=== PATIENT | male | born 1965 | race Caucasian/White ===

== ENCOUNTER 2017-10-16 18:34 | Inpatient (IN) | payer MEDICAID ==
[~2017-10-16] VITALS: Ht 188 cm; Wt 108.2 kg
--- NOTE | ~2017-10-16 | HP ---
PATIENT: REY MONTEMAYOR MEDICAL RECORD: [id number] ACCOUNT: [id number] LOCATION:[facility] [id number] : 65 ADMISSION DATE: 10/16/17 HISTORY AND PHYSICAL EXAMINATION REASON FOR ADMISSION: Two-day history of dark bloody stool. HISTORY OF PRESENT ILLNESS: The patient is a 52-year-old male, who is incarcerated at the detention. He states he had been having some wisdom tooth pain and neck pain. He says he has been averaging 1600 mg of ibuprofen a day for the last 2 days. He had onset of some dark bloody stool 2 days ago and was brought to the Emergency Room last night with these complaints. He denies abdominal pain or vomiting of blood. He states he had a peptic ulcer back in 1997. He also had a colonoscopy and they "fixed something." PAST MEDICAL HISTORY: Peptic ulcer disease in 1995. Hep C, which he has not been treated for. PAST SURGICAL HISTORY: Denies surgeries except for EGD and colonoscopy. FAMILY HISTORY: Father of CVA. Mother of breast cancer. SOCIAL HISTORY: Obb-tywp-z-day smoker. Does not drink alcohol currently, but has in the past. ALLERGIES: None known. CURRENT MEDICATIONS: As prescribed by the ER MD. Except for ibuprofen, dose unknown. REVIEW OF SYSTEMS: CONSTITUTIONAL: No fever, fatigue, or weight change. HEENT: No recent visual change, sinus congestion, or sore throat. RESPIRATORY: No SOB or cough. CARDIAC: No chest pain, claudication, or edema. GASTROINTESTINAL: He has had some nausea, but no vomiting. He has had dark bloody stools for the last 2 days. Denies abdominal pain. ENDOCRINE: Denies polyuria, polydipsia, heat or cold intolerance. NEUROLOGIC: No history of stroke, TIA, vascular headaches, or seizures. INTEGUMENT: No rash or itching. PSYCHIATRIC: Denies depressed mood. GENITOURINARY: Nocturia once nightly. PHYSICIAL EXAMINATION: VITAL SIGNS: Blood pressure 94/57 with a pulse of 72, respirations of 18, O2 sat 94% on room air. GENERAL: The patient is in no acute distress. HEENT: Normocephalic. Male pattern balding. Eyes are clear. Sclerae nonicteric. Oropharynx unremarkable. NECK: No bruits or masses. CHEST: Clear without wheeze or rales. HEART: Regular rate and rhythm without murmur. ABDOMEN: Obese, soft, nontender throughout. Rectal showed black heme positive stool. EXTREMITIES: No CC&E. HISTORY AND PHYSICAL [id number] REY MONTEMAYOR NEUROLOGICAL: Oriented to person, place, and time. Cranial nerves intact. Gait is normal. SKIN: He is nonicteric. No petechiae appreciated. He does have multiple tattoos. LABORATORY DATA: His admission hemoglobin is 9.2 and 28.0 with a white count of 9900, platelet count 165,000. Normal differential. BMP is normal except for BUN of 33, glucose 98, alkaline phosphatase low at 43. Liver functions otherwise normal. Urinalysis is pending. IMAGING: KUB showed large amount of feces in the colon, otherwise unremarkable. ASSESSMENT: Acute gastrointestinal bleeding possibly secondary to NSAIDs. History of peptic ulcer disease. Hepatitis C. PLAN: The patient will have blood typed and crossed. He is to see GI this morning for endoscopies. He is on IV Protonix drip currently. We will recheck hepatitis studies. TRANSINT:[id number] Voice Confirmation ID: [id number] DOCUMENT ID: [id number] LILI BARBER MD at 0857 CC: [id number] DICTATION DATE: 10/17/17 07 SALES ENGAGEMENT MANAGER: 10/17/17 0834 ADM IN [place] [id number] [place] [id number]
[2017-10-16 19:20] LABS: BASOPHILS 0.1 % (0-2); EOSINOPHILS 0.4 % (0-7); HEMATOCRIT 32.8 % (42.0-54.0); IMMATURE GRANULOCYTES 0.4 % (0-5); LYMPHOCYTES 16.9 % (15-50); MCH 31.1 pg (26.0-34.0); MCHC 33.5 g/dL (31.0-37.0); MCV 92.7 fL (80.0-100.0); MEAN PLATELET VOLUME 10.3 fL (7.4-10.4); MONOCYTES 8.5 % (2-11); NEUTROPHILS 73.7 % (40-80); PLATELET COUNT 207 10x3/uL (130-400); RBC 3.54 10x6/uL (4.20-6.10); RDW 12.4 % (11.5-14.5); WBC 13.6 10x3/uL (4.8-10.8)
[2017-10-16 19:29] LABS: APTT 23.7 SECONDS (22.8-39.4); INR 1.16 (0.85-1.17); PROTIME 14.4 SECONDS (11.6-15.0)
[2017-10-16 19:34] LABS: ALBUMIN 3.1 g/dL (3.4-5.0); ALKALINE PHOSPHATASE 43 U/L (46-116); ALT (SGPT) 22 U/L (10-68); BILIRUBIN - TOTAL 0.52 mg/dL (0.2-1.3); CALC OSMOLALITY 291 mosm/kg (275-300); CALCIUM 7.9 mg/dL (8.5-10.1); CARBON DIOXIDE 24.1 mmol/L (21.0-32.0); CHLORIDE - SERUM 110 mmol/L (98-107); CREATININE - SERUM 0.8 mg/dL (0.6-1.3); GLUCOSE 102 mg/dL (74-106); POTASSIUM - SERUM 4.4 mmol/L (3.5-5.1); PROTEIN - SERUM 5.7 g/dL (6.4-8.2); SODIUM 142 mmol/L (136-145); UREA NITROGEN 39 mg/dL (7-18); eGFR NON AFRICAN AMERICAN > 90 mL/min (90-120)
[2017-10-16 21:00] VITALS: BP 110/75
[2017-10-16 21:15] VITALS: BP 110/75
[2017-10-16 21:21] VITALS: BP 110/75
[2017-10-16 22:00] VITALS: BP 103/58
[2017-10-16 22:58] LABS: HEMATOCRIT 31.4 % (42.0-54.0); HEMOGLOBIN 9.9 g/dL (13.5-17.5)
[2017-10-16 23:00] VITALS: BP 104/68
[2017-10-17] VITALS (21 sets, daily range): BP systolic 85–122; BP diastolic 46–97; Ht 188 cm; Wt 108.2 kg
[2017-10-17 03:55] LABS: BASOPHILS 0.2 % (0-2); EOSINOPHILS 1.1 % (0-7); HEMOGLOBIN 9.2 g/dL (13.5-17.5); IMMATURE GRANULOCYTES 0.2 % (0-5); LYMPHOCYTES 37.1 % (15-50); MCH 30.3 pg (26.0-34.0); MCHC 32.9 g/dL (31.0-37.0); MCV 92.1 fL (80.0-100.0); MEAN PLATELET VOLUME 9.4 fL (7.4-10.4); MONOCYTES 9.1 % (2-11); NEUTROPHILS 52.3 % (40-80); PLATELET COUNT 165 10x3/uL (130-400); RBC 3.04 10x6/uL (4.20-6.10); RDW 12.6 % (11.5-14.5); WBC 9.9 10x3/uL (4.8-10.8)
[2017-10-17 04:09] LABS: CALC OSMOLALITY 291 mosm/kg (275-300); CALCIUM 7.7 mg/dL (8.5-10.1); CARBON DIOXIDE 24.6 mmol/L (21.0-32.0); CHLORIDE - SERUM 113 mmol/L (98-107); CREATININE - SERUM 0.7 mg/dL (0.6-1.3); GLUCOSE 98 mg/dL (74-106); POTASSIUM - SERUM 4.3 mmol/L (3.5-5.1); SODIUM 143 mmol/L (136-145); UREA NITROGEN 33 mg/dL (7-18); eGFR NON AFRICAN AMERICAN > 90 mL/min (90-120)
[2017-10-17 09:59] LABS: HEMATOCRIT 28.5 % (42.0-54.0); HEMOGLOBIN 9.5 g/dL (13.5-17.5)
[2017-10-17 19:43] LABS: HEMATOCRIT 25.8 % (42.0-54.0); HEMOGLOBIN 8.6 g/dL (13.5-17.5)
[2017-10-18] VITALS (24 sets, daily range): BP systolic 87–132; BP diastolic 61–91
[2017-10-18 06:12] LABS: BASOPHILS 0.3 % (0-2); EOSINOPHILS 3.3 % (0-7); HEMATOCRIT 32.6 % (42.0-54.0); IMMATURE GRANULOCYTES 0.3 % (0-5); LYMPHOCYTES 47.6 % (15-50); MCH 30.6 pg (26.0-34.0); MCHC 33.7 g/dL (31.0-37.0); MCV 90.6 fL (80.0-100.0); MEAN PLATELET VOLUME 10.4 fL (7.4-10.4); MONOCYTES 10.7 % (2-11); NEUTROPHILS 37.8 % (40-80); PLATELET COUNT 163 10x3/uL (130-400); RDW 12.9 % (11.5-14.5); WBC 7.8 10x3/uL (4.8-10.8)
[2017-10-18 06:19] LABS: CALC OSMOLALITY 283 mosm/kg (275-300); CALCIUM 8.2 mg/dL (8.5-10.1); CARBON DIOXIDE 26.4 mmol/L (21.0-32.0); CHLORIDE - SERUM 110 mmol/L (98-107); CREATININE - SERUM 0.8 mg/dL (0.6-1.3); GLUCOSE 101 mg/dL (74-106); POTASSIUM - SERUM 3.9 mmol/L (3.5-5.1); SODIUM 142 mmol/L (136-145); eGFR NON AFRICAN AMERICAN > 90 mL/min (90-120)
[2017-10-18 06:21] LABS: UREA NITROGEN 16 mg/dL (7-18)
[2017-10-18 11:31] LABS: HEMATOCRIT 32.8 % (42.0-54.0); HEMOGLOBIN 11.2 g/dL (13.5-17.5)
[2017-10-18 12:12] LABS: HEPATITIS C ANTIBODY >11.0 (0.0-0.9)
[2017-10-18 19:21] LABS: HEMATOCRIT 31.9 % (42.0-54.0); HEMOGLOBIN 11.1 g/dL (13.5-17.5)
[2017-10-19] VITALS (13 sets, daily range): BP systolic 98–140; BP diastolic 52–85
[2017-10-19 03:49] LABS: BASOPHILS 0.5 % (0-2); EOSINOPHILS 2.8 % (0-7); HEMATOCRIT 32.7 % (42.0-54.0); HEMOGLOBIN 10.9 g/dL (13.5-17.5); IMMATURE GRANULOCYTES 0.2 % (0-5); LYMPHOCYTES 46.4 % (15-50); MCH 30.2 pg (26.0-34.0); MCHC 33.3 g/dL (31.0-37.0); MCV 90.6 fL (80.0-100.0); MEAN PLATELET VOLUME 10.6 fL (7.4-10.4); MONOCYTES 9.3 % (2-11); NEUTROPHILS 40.8 % (40-80); PLATELET COUNT 152 10x3/uL (130-400); RBC 3.61 10x6/uL (4.20-6.10); RDW 12.8 % (11.5-14.5); WBC 8.7 10x3/uL (4.8-10.8)
[2017-10-19 04:10] LABS: CALC OSMOLALITY 281 mosm/kg (275-300); CALCIUM 8.2 mg/dL (8.5-10.1); CARBON DIOXIDE 26.1 mmol/L (21.0-32.0); CHLORIDE - SERUM 107 mmol/L (98-107); CREATININE - SERUM 0.6 mg/dL (0.6-1.3); GLUCOSE 99 mg/dL (74-106); POTASSIUM - SERUM 3.7 mmol/L (3.5-5.1); SODIUM 142 mmol/L (136-145); eGFR NON AFRICAN AMERICAN > 90 mL/min (90-120)
[2017-10-19 04:12] LABS: UREA NITROGEN 11 mg/dL (7-18)
[2017-10-20 06:20] LABS: BASOPHILS 0.2 % (0-2); EOSINOPHILS 3.1 % (0-7); HEMATOCRIT 33.1 % (42.0-54.0); HEMOGLOBIN 11.1 g/dL (13.5-17.5); IMMATURE GRANULOCYTES 0.2 % (0-5); LYMPHOCYTES 41.5 % (15-50); MCH 30.2 pg (26.0-34.0); MCHC 33.5 g/dL (31.0-37.0); MCV 89.9 fL (80.0-100.0); MEAN PLATELET VOLUME 10.7 fL (7.4-10.4); MONOCYTES 10.8 % (2-11); NEUTROPHILS 44.2 % (40-80); RBC 3.68 10x6/uL (4.20-6.10); RDW 12.6 % (11.5-14.5)
[2017-10-20 06:27] LABS: PLATELET COUNT 211 10x3/uL (130-400)
[2017-10-20] MEDS ORDERED: CARAFATE1 G/10 ML PO (07:51)
[2017-10-20] MEDS ORDERED: PROTONIX40 MG PO (07:51)
[2017-10-20 08:17] VITALS: BP 135/80
[2017-10-20 12:35] VITALS: BP 135/76
[2017-10-21 07:29] LABS: HCVGENO - HEP C QUANT 258000 IU/mL (()); HCVGENO - LOG 10 5.412 (())
== END 2017-10-20 13:26 | DRG 378 ==
LOC: D.ER 18:34 → D.ICU 20:30 → D.MS 10-19 13:04
PROVIDERS: Emergency Medicine; Family Medicine; Internal Medicine Gastroenterology
PROC: 0DD78ZX Extraction of Stomach, Pylorus, Via Natural or Artificial Opening Endoscopic, Diagnostic (ICD-10-PCS; principal; 2017-10-17 07:00)
DX: K25.4 Chronic or unspecified gastric ulcer with hemorrhage (principal); D62 Acute posthemorrhagic anemia; I95.9 Hypotension, unspecified; K29.70 Gastritis, unspecified, without bleeding; R55 Syncope and collapse; B19.20 Unspecified viral hepatitis C without hepatic coma